=== PATIENT | female | born 1985 | race African-American/Black ===

== ENCOUNTER 2023-06-10 16:37 | Emergency (ER) | payer OTHER, SELFPAY ==
[2023-06-10 16:38] VITALS: BP 141/100; PULSE 82; RESP 16; TEMP 36.1; O2SAT 99; BMI 32.0
[2023-06-10] MEDS: 0.9% Normal Saline (1000mL) 1,000 ML 1000 ML IV (18:29)
[2023-06-10 18:30] LABS: Bacteria 0 SEEN /hpf (None Seen); Mucous, Urine 0 SEEN /hpf (<or=2+); Red Blood Cells-Urine 0 SEEN /hpf (0-5)
[2023-06-10 18:37] LABS: Absolute Lymphocyte Count 3.08 X10^3/uL (0.83-4.51); Absolute Neutrophil Count 3.5 X10^3/uL (2.0-7.7); Basophil# 0.01 X10^3/uL; Basophil% 0.1 % (0-1); Eosinophil# 0.03 X10^3/uL; Eosinophils% 0.4 % (0-5); Hematocrit 38.6 % (37-47); Hemoglobin 12.3 g/dL (12.0-15.0); Lymphocyte # 3.08 X10^3/ul (0.83-4.51); Lymphocyte % 43.9 % (19-41); Mean Corp Hgb Conc 31.9 g/dL (32-36); Mean Platelet Vol. 10.4 fl (6.2-12.0); Monocyte# 0.41 X10^3/uL; Monocyte% 5.8 % (0-10); NRBC Flagged by Analyzer 0 % (0-5); Neutrophil # 3.47 X10^3/uL (2.7-7.7); Neutrophil % 49.7 % (47-70); Platelet Count 304 K/mm3 (150-450); RBC Distribution Width CV 14.5 % (11.6-14.6); RBC Distribution Width SD 47.8 fl (35.1-43.9); Red Blood Count 4.24 M/mm3 (4.2-5.4)
[2023-06-10 18:38] LABS: Color, Urine Yellow (Yellow); Glucose, Dipstick Normal (Normal); Ketone-Dipstick 15 mg/dl (Negative); Leukocyte Esterase-Dipstick Negative /ul (Negative); Nitrite-Dipstick Negative (Negative); Occult Blood-Urine Negative /ul (Negative); Protein-Dipstick Negative (Negative); Specific Gravity, Urine 1.015 (1.002-1.030); Urine Bilirubin Dipstick Negative (Negative); Urine Clarity Sl. Cloudy (Clear); Urine Urobilinogen Normal (Normal)
[2023-06-10 18:49] LABS: Internal QC Validated? YES +Cl - CLEAR BKGD; Pregnancy, Serum, hCG Quali. NEGATIVE Negative
[2023-06-10 18:52] LABS: Squamous Epithelial Cells - UA 0-5 SEEN /hpf (5-10); White Blood Cells 0-5 SEEN /hpf (0-5)
[2023-06-10 18:57] LABS: ALB/GLOB Ratio 0.9 RATIO (0.9-2.4); AST(SGOT) 12 U/L (15-37); Alanine Aminotransfer ALT/SGPT 18 U/L (13-56); Albumin, Serum 3.4 g/dL (3.2-5.0); Alkaline Phosphatase 98 U/L (45-117); Anion Gap 4 (5-15); BUN 7 mg/dL (7-18); BUN/Creat Ratio 9.8 RATIO (10-20); Chloride 109 mmol/L (98-107); Creatinine, Serum 0.71 mg/dL (0.55-1.02); EST Glomerular Filtration Rate 98 mL/min (>60); Est Glom Filt Rate - Afr Amer 119 mL/min (>60); Estimated Creatinine Clearance 89.74 ml/min; Globulin 3.8 g/dL (2.2-4.2); Glucose 90 mg/dL (74-106); Lipase 20 U/L (13-75); Potassium 4.1 mmol/L (3.5-5.1); Protein, Total 7.2 g/dL (6.4-8.2); Sodium Level 141 mmol/L (136-145)
[2023-06-10] MEDS: Ondansetron 4 MG/2 ML Vial IV (18:58)
[2023-06-10] MEDS: Morphine 4 MG/ML Syringe IV ×2 (18:58→22:13)
--- NOTE | 2023-06-10 19:01 | ED.VIS.GI ---
HPI HPI - GI History of Present Illness Chief Complaint: Abd Pain Narrative Narrative: 38-year-old female presenting with abdominal pain. She states is diffuse and points to her abdomen pointing all over. Patient states it started about 8 AM this morning before she ate breakfast. Patient states she had not had anything out of the ordinary. No fevers, chills, nausea, vomiting, diarrhea, constipation. Patient denies any urinary or vaginal complaints. Patient states she thought she might of had an episode of mesenteric adenitis distantly. She is not sure if it felt the same. Denies any trauma. She does not believe she is because she has an IUD. [facility] PFS Medical History Intrauterine contraceptive device Home Medications metformin 500 mg tablet,extended release 24 hr 500 mg PO DAILY 06/10/23 [History Last Taken Unknown] progesterone micronized 100 mg capsule 100 mg PO DAILY 06/10/23 [History Last Taken Unknown] semaglutide 2 mg/dose (8 mg/3 mL) subcutaneous pen injector (Ozempic) 2 mg subcut QWEEK 06/10/23 [History Last Taken Unknown] sertraline 50 mg tablet mg 06/10/23 [History Last Taken Unknown] Allergy/AdvReac Type Severity Reaction Status Date / Time No Known Allergies Allergy Verified 06/10/23 16:38 Surgical History History of appendectomy History of cholecystectomy History of gastric bypass Social History Smoking Status: Never smoker ROS ROS ED Constitutional Constitutional ED: Denies chills, fever(s) or sweats Eyes Eyes: Denies blurry vision or change in vision ENT ENT ED: Denies ear pain or sore throat Cardiovascular Cardiovascular: Denies chest pain, palpitations or racing heartbeat Respiratory/Chest Respiratory/Chest: Denies cough, dyspnea or sputum Gastrointestinal Gastrointestinal: Reports abdominal pain; Denies constipation, diarrhea, nausea or vomiting Genitourinary Genitourinary ED: Denies dysuria, hematuria or urinary frequency Musculoskeletal Musculoskeletal: Denies arthralgias, myalgias or neck pain Integumentary Denies abscess, Abrasions or rash Neurologic Neurologic: Denies headache(s), paresthesias or weakness Psychiatric Psychiatric: Denies anxiety, depression, suicidal ideation or suicidal thoughts Endocrine Endocrinology: Denies polydipsia or polyuria EXAM Physical Exam Const Vital Signs: 06/10/23 16:38 06/10/23 19:03 06/10/23 22:03 Temperature 96.9 F L 97.6 F L Temperature Source Temporal Oral Pulse Rate 82 74 62 Respiratory Rate 16 12 16 Blood Pressure 141/100 H 134/89 H 138/94 H Blood Pressure Mean 113 104 108 Pulse Ox 99 99 99 Oxygen Delivery Method Room Air Room Air MDM MDM MDM Narrative Medical decision making narrative: Patient presenting with diffuse abdominal pain. No other symptoms other than pain. She is passing flatus. No diarrhea or constipation. No nausea or vomiting. Patient medicated with morphine and Zofran. Differential includes gastritis, GERD, colitis, diverticulitis, constipation, dehydration, electrolyte abnormalities, UTI, pyelonephritis. CBC was obtained to assess white blood cell count, hemoglobin, platelets. CMP to assess liver function, renal function, electrolytes, glucose. Lipase to assess for pancreatitis. Urinalysis to assess for UTI. hCG to assess for . Will obtain CT of the abdomen pelvis with IV contrast. CBC, CMP, lipase all within normal limits. Urinalysis negative. hCG negative. Patient medicated with morphine, Zofran initially. She requested another dose of pain medication and she was given Toradol. CT of the ab pelvis IV contrast was obtained and shows evidence of small bowel obstruction versus internal hernia on the left. Also evidence of enteritis. Discussed with Dr. Armstrong who recommended transfer given her history of gastric bypass. Patient states this was distant and was performed at [facility]. I did place a page for on-call surgery at [facility]. Patient requested on the dose of morphine which is provided. She is kept NPO. Still awaiting callback from [facility] at 10:50 PM. Patient was given another dose of morphine. Vital signs are still stable. I did have the images digitally sent to [facility] so they can be reviewed as soon as possible. Patient will be signed out to incoming ED physician for monitoring until transportation can be arranged. Impression: 1. Small bowel obstruction versus internal hernia 2. Abdominal pain 3. History of gastric bypass Lab Data Labs: Laboratory Results - last 24 hr 06/10/23 06/10/23 17:30 18:18 WBC 7.0 RBC 4.24 Hgb 12.3 Hct 38.6 MCV 91.0 MCH 29.0 MCHC 31.9 L RDW Std Deviation 47.8 H RDW Coeff of José Antonio 14.5 Plt Count 304 MPV 10.4 Immature Gran % (Auto) 0.100 Neut % (Auto) 49.7 Lymph % (Auto) 43.9 H [place] % (Auto) 5.8 Eos % (Auto) 0.4 Baso % (Auto) 0.1 Absolute Neuts (auto) 3.5 Absolute Lymphs (auto) 3.08 Nucleated RBC % 0 Sodium 141 Potassium 4.1 Chloride 109 H Carbon Dioxide 28.0 Anion Gap 4 L BUN 7 Creatinine 0.71 Estim Creat Clear Calc 89.74 Est GFR (MDRD) Af Amer 119 Est GFR (MDRD) Non-Af 98 BUN/Creatinine Ratio 9.8 L Glucose 90 Calcium 9.0 Total Bilirubin 0.30 AST 12 L ALT 18 Alkaline Phosphatase 98 Total Protein 7.2 Albumin 3.4 Globulin 3.8 Albumin/Globulin Ratio 0.9 Lipase 20 Serum , Qual NEGATIVE Urine Color Yellow Urine Clarity Sl. Cloudy Urine pH 7.0 Ur Specific [place] 1.015 Urine Protein Negative Urine Glucose (UA) Normal Urine Ketones 15 H Urine Occult Blood Negative Urine Nitrite Negative Urine Bilirubin Negative Urine Urobilinogen Normal Ur Leukocyte Esterase Negative Urine RBC 0 SEEN Urine WBC 0-5 SEEN Ur Squamous Epith Cells 0-5 SEEN Urine Bacteria 0 SEEN Urine Mucus 0 SEEN Radiography Diagnostic Testing: Clinical Impression(s) from Imaging Studies Abdomen/Pelvis CT 06/10/23 19:43 IMPRESSION: Significant mesenteric edema along the left mesenteric root and directed to the left-sided small bowel with mild lymphadenopathy and swelling pattern. Some of the corresponding central small bowel loops severe dilatation to at least 3 cm, combination of findings concerning for closed loop obstruction versus internal hernia. Due to significant edema, cannot exclude impending strangulation, differential diagnosis including atypical enteritis with mild lymphadenopathy. Clinical correlation recommended and if indicated, surgical evaluation. Electronically Signed: Carol Ann Solo MD at 20:52 EST , ADDENDUM: 06/10/232106 IMPRESSION: Significant mesenteric edema along the left mesenteric root and directed to the left-sided small bowel with mild lymphadenopathy and swelling pattern. Some of the corresponding central small bowel loops severe dilatation to at least 3 cm, combination of findings concerning for closed loop obstruction versus internal hernia. Due to significant edema, cannot exclude impending strangulation, differential diagnosis including atypical enteritis with mild lymphadenopathy. Clinical correlation recommended and if indicated, surgical evaluation. N.B. : The above Results were Read Back by Carol Ann Solo MD to Greyson Smallwood DO, and understanding confirmed on 06/10/2023 21:00:47 (ET). Electronically Signed: Carol Ann Solo MD at 20:52 EST , Discharge Plan Triage Chief Complaint: Abd Pain ED Provider: Greyson Smallwood Dx/Rx/DC Orders Prescriptions: No Action sertraline 50 mg tablet Ozempic 2 mg/dose (8 mg/3 mL) pen injector 2 mg SUBCUT QWEEK metformin 500 mg tablet extended release 24 hr 500 mg PO DAILY progesterone micronized 100 mg capsule 100 mg PO DAILY Primary Care Provider: ISELA PEÑA Referrals: ISELA PEÑA [Other]
[2023-06-10 19:03] VITALS: BP 134/89; PULSE 74; RESP 12; O2SAT 99
--- NOTE | 2023-06-10 19:43 | CT_ITS ---
We are attempting to reach an attending provider to discuss findings. An addendum with communication details will be sent when the communication is complete. STUDY: CT ABDOMEN AND PELVIS WITH CONTRAST REASON FOR EXAM: Female, 38 years old. abdominal pain RADIATION DOSAGE (If Supplied By Facility): CTDIvol = ( 14.54 ) mGy, DLP = ( 731.44 ) mGycm TECHNIQUE: Transaxial images were obtained from the dome of the diaphragm to the symphysis pubis without oral contrast. IV 100mL Isovue-370 was administered. Sagittal and coronal images were reconstructed. Individualized dose optimization techniques were used for this CT. COMPARISON: None. FINDINGS: The visualized lung bases are unremarkable. The visualized portions of the heart are within normal limits. Normal liver. There is absence of the geriatric nursing assistant with known history of a prior cholecystectomy. Normal spleen. Normal pancreas. Normal bilateral adrenal glands. Normal right kidney. Normal left kidney. Postoperative changes of the stomach with minimal hiatal hernia. There are loops of small bowel in the central abdomen delineated up to 3 cm concerning for small bowel obstruction. There is swirling pattern within the left upper mesenteric region suggestive of internal hernia or closed loop obstruction. There is mesenteric edema at this level concerning for impending strangulation. Normal colon. There are surgical clips in the region of the appendix consistent with a prior appendectomy. There are areas of mild enlargement of the lymph nodes along the central mesenteric region concerning for nonspecific inflammatory response. Normal abdominal aorta. Normal inferior vena cava. Normal retroperitoneum. Normal urinary bladder. The uterus is anteverted with IUD in place. Mild free fluid in the cul-de-sac, nonspecific. There is a right ovarian corpus luteum cyst measuring 1.6 cm. Normal abdominal wall. Normal osseous structures. CT/Abdomen/Pelvis W IV Cont ONLY IMPRESSION: Significant mesenteric edema along the left mesenteric root and directed to the left-sided small bowel with mild lymphadenopathy and swelling pattern. Some of the corresponding central small bowel loops severe dilatation to at least 3 cm, combination of findings concerning for closed loop obstruction versus internal hernia. Due to significant edema, cannot exclude impending strangulation, differential diagnosis including atypical enteritis with mild lymphadenopathy. Clinical correlation recommended and if indicated, surgical evaluation. Electronically Signed: Carol Ann Solo MD at 20:52 EST ,
[2023-06-10] MEDS: Ketorolac 15 MG/ML Vial IV (20:52)
[2023-06-10 22:03] VITALS: BP 138/94; PULSE 62; RESP 16; TEMP 36.4; O2SAT 99
[2023-06-10] MEDS: Piperacil/Tazobactam 3.375 GM in 0.9% Normal Saline (50mL MB+) 50 ML IV (23:54)
[2023-06-10] MEDS: 0.9% Normal Saline (1000mL) 1,000 ML 100 ML IV (23:55)
[2023-06-11 00:02] LABS: Lactic Acid 0.8 mmol/L (0.4-1.9)
[2023-06-11] MEDS: Morphine 4 MG/ML Syringe IV ×2 (01:18→09:20)
[2023-06-11 01:44] VITALS: BP 106/66; PULSE 63; RESP 14; O2SAT 100
[2023-06-11 03:00] VITALS: BP 105/74; PULSE 68; RESP 16; O2SAT 99
[2023-06-11 05:00] VITALS: BP 120/79; PULSE 74; RESP 18; O2SAT 97
--- NOTE | 2023-06-11 06:43 | ED.RN ---
Dr Armstrong at bedside for assessment
--- NOTE | 2023-06-11 06:52 | EX.PCM.CON.S ---
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 Emergency room workup showed signs concerning for possible internal hernia with mesenteric swirl and mesenteric edema. I was notified of patient's presentation and reviewed the imaging independently. Upon this independent review I confirmed evidence of a mesenteric swirl in the region of the Petersens defect and recommended immediate transfer to bariatric surgery attention at a tertiary facility. I shared that I was concerned patient would require emergent operative intervention and that the procedure could become complex if bowel resection and restructuring of her Demetrius-en-Y anatomy is required. Unfortunately, while patient was accepted at the [facility], bed availability has slowed transfer. Upon hearing of this delay I reached out to the tie mill operator at the [facility] and paged bariatric surgery on-call. I discussed with bariatric surgery fellow Dr. Up the clinical scenario and she in turn reached out to her attending, Dr. Terell St for guidance. On hearing about the situation they agreed to receive the patient as a level 1 expedited transfer and this information has been relayed back to emergency medicine. I have also confirmed this update with the emergency room staff. For the interim would recommend keeping patient resuscitated with maintenance IV fluids and an n.p.o. status. HPI Consult Data Date of Consult: 06/11/23 HPI Narrative Reason for Consultation: Abdominal pain and possible internal hernia HPI Narrative: DIXIE BUNCH, is a 38 F who presented to [facility] with complaints of acute onset abdominal pain and associated nausea beginning approximately 8 AM 06/10/2023. Patient states that the abdominal pain was mainly centered in the lower abdominal quadrants and is not a pain that she is ever experienced before. She shares that despite the nausea she was able to eat some tomato soup from [employer] for lunch yesterday and keep this down without vomiting. Upon her presentation to the emergency department yesterday her labs were within normal limits?including a lactic acid, however, CT imaging of the abdomen pelvis demonstrated mesenteric swirl and signs of mesenteric edema with radiology calling possible closed-loop obstruction. Patient confirms a history of morbid obesity status post Demetrius-en-Y gastric bypass by Dr. Nielsen of the [facility] on 10/27/2015. She states that the perioperative period proceeded uneventfully and she was successful in a weight loss of approximately 130 pounds since surgery. She notes that her only complication came approximately 6 months after surgery when she was treated for a small ulcer. She shares that she believes Dr. Nielsen has since departed the clinic and that she is only ever been seen by Dr. Martins in follow-up. She now follows with an customer service dispatcher locally for assistance with her post gastric bypass dietary needs. Beyond the above Ms. Bunch reports a history of appendectomy and cholecystectomy. [facility] Medical History Intrauterine contraceptive device Home Medications metformin 500 mg tablet,extended release 24 hr 500 mg PO DAILY 06/10/23 [History Last Taken Unknown] progesterone micronized 100 mg capsule 100 mg PO DAILY 06/10/23 [History Last Taken Unknown] semaglutide 2 mg/dose (8 mg/3 mL) subcutaneous pen injector (Ozempic) 2 mg subcut QWEEK 06/10/23 [History Last Taken Unknown] sertraline 50 mg tablet mg 06/10/23 [History Last Taken Unknown] Allergy/AdvReac Type Severity Reaction Status Date / Time No Known Allergies Allergy Verified 06/10/23 16:38 Surgical History (Updated 06/11/23 @ 10:[address] Piotr Armstrong MD) History of appendectomy History of cholecystectomy History of gastric bypass Social History Smoking Status: Never smoker ROS Gastrointestinal Gastrointestinal: Reports abdominal pain and nausea; Denies vomiting Physical Exam Const alert and well nourished Constitutional Narrative: Mild distress General Appearance: cooperative and well developed Resp normal respiratory effort GI GI Narrative: Nondistended, soft, tender to palpation diffusely in all quadrants but lower abdominal quadrants reporting this greater than upper. Patient with some voluntary guarding but otherwise no peritoneal signs. Lab / Micro Data 06/10/23 18:18 06/10/23 18:18 Labs: Laboratory Results - last 24 hr 06/10/23 17:30: Urine Color Yellow, Urine Clarity Sl. Cloudy, Urine pH 7.0, Ur Specific [place] 1.015, Urine Protein Negative, Urine Glucose (UA) Normal, Urine Ketones 15 H, Urine Occult Blood Negative, Urine Nitrite Negative, Urine Bilirubin Negative, Urine Urobilinogen Normal, Ur Leukocyte Esterase Negative, Urine RBC 0 SEEN, Urine WBC 0-5 SEEN, Ur Squamous Epith Cells 0-5 SEEN, Urine Bacteria 0 SEEN, Urine Mucus 0 SEEN 06/10/23 18:18: WBC 7.0, RBC 4.24, Hgb 12.3, Hct 38.6, MCV 91.0, MCH 29.0, MCHC 31.9 L, RDW Std Deviation 47.8 H, RDW Coeff of José Antonio 14.5, Plt Count 304, MPV 10.4, Immature Gran % (Auto) 0.100, Neut % (Auto) 49.7, Lymph % (Auto) 43.9 H, [place] % (Auto) 5.8, Eos % (Auto) 0.4, Baso % (Auto) 0.1, Absolute Neuts (auto) 3.5, Absolute Lymphs (auto) 3.08, Nucleated RBC % 0, Sodium 141, Potassium 4.1, Chloride 109 H, Carbon Dioxide 28.0, Anion Gap 4 L, BUN 7, Creatinine 0.71, Estim Creat Clear Calc 89.74, Est GFR (MDRD) Af Amer 119, Est GFR (MDRD) Non-Af 98, BUN/Creatinine Ratio 9.8 L, Glucose 90, Calcium 9.0, Total Bilirubin 0.30, AST 12 L, ALT 18, Alkaline Phosphatase 98, Total Protein 7.2, Albumin 3.4, Globulin 3.8, Albumin/Globulin Ratio 0.9, Lipase 20, Serum , Qual NEGATIVE 06/10/23 23:23: Lactic Acid 0.8 Imagaing Radiology Impression Abdomen/Pelvis CT 06/10/23 19:43 IMPRESSION: Significant mesenteric edema along the left mesenteric root and directed to the left-sided small bowel with mild lymphadenopathy and swelling pattern. Some of the corresponding central small bowel loops severe dilatation to at least 3 cm, combination of findings concerning for closed loop obstruction versus internal hernia. Due to significant edema, cannot exclude impending strangulation, differential diagnosis including atypical enteritis with mild lymphadenopathy. Clinical correlation recommended and if indicated, surgical evaluation. Electronically Signed: Carol Ann Solo MD at 20:52 EST , ADDENDUM: 06/10/232106 IMPRESSION: Significant mesenteric edema along the left mesenteric root and directed to the left-sided small bowel with mild lymphadenopathy and swelling pattern. Some of the corresponding central small bowel loops severe dilatation to at least 3 cm, combination of findings concerning for closed loop obstruction versus internal hernia. Due to significant edema, cannot exclude impending strangulation, differential diagnosis including atypical enteritis with mild lymphadenopathy. Clinical correlation recommended and if indicated, surgical evaluation. N.B. : The above Results were Read Back by Carol Ann Solo MD to Greyson Smallwood DO, and understanding confirmed on 06/10/2023 21:00:47 (ET). Electronically Signed: Carol Ann Solo MD at 20:52 EST , Charges/Coding Visit Charges Office Visits / Consults: 63395 ED Visit; High/Urgent Severity
[2023-06-11 07:30] VITALS: RESP 14
[2023-06-11 09:18] VITALS: BP 107/76; PULSE 60; RESP 18
--- NOTE | 2023-06-11 09:52 | ED.RN ---
CALLED [phone], TRANSFER LINE STILL WAITING FOR SURGICAL TEAM AND ED TO CONSULT, FOR ACCEPTANCE AND TRANSFER.
--- NOTE | 2023-06-11 10:26 | ED.RN ---
CALLED [facility] AGAIN, JESSIE WITH TRANSFER LINE SAID THEY ARE ATTMEPTING CONTACT WITH DR. MAYCO PINO, WITH NO ANSWER.
--- NOTE | 2023-06-11 10:33 | ED.RN ---
CALLED DR. MAYCO EASON AND SHE SAID TO CALL AND SPEAK WITH DR. ESTRELLA, SHE JUST GOT OUT OF SURGERY AND SEEN MISSED PAGE/CALL. I CALLED [facility] AND LEFT MESSAGE TO RETURN CALL TO [facility].
--- NOTE | 2023-06-11 11:34 | ED.RN ---
MULTIPLE ATTEMPTS TO CALL [facility] TRANSFER LINE. WAITING FOR KR[facility] TO CALL BACK FROM [facility] FOR ED CONSULT FOR ED TO ED TRANSFER.
[2023-06-11 11:36] VITALS: BP 107/68; PULSE 54; RESP 16; O2SAT 98
== END 2023-06-11 12:40 | disposition short-term general hospital (02) ==
PROVIDERS: Emergency Provider Student in an Organized Health Care Education/Training Program; Visit Provider Student in an Organized Health Care Education/Training Program
DX: K56.609 Unspecified intestinal obstruction, unspecified as to partial versus complete obstruction (principal); R10.9 Unspecified abdominal pain; Z98.84 Bariatric surgery status; Z79.84 Long term (current) use of oral hypoglycemic drugs
CPT/HCPCS: 74177; 80053; 81001; 83605; 83690; 84703; 85025; 96365; 96366; 96375; 96376; 99283; J7030; Q9967; A4216; J2405